=== PATIENT | female | born 1955 | race African-American/Black ===

== ENCOUNTER 2016-07-05 09:30 | Day surgery (SDC) | payer BC ==
[~2016-07-05] VITALS: Ht 167.6 cm; Wt 59.9 kg
[2016-07-05] MEDS ORDERED: ceFAZolin 1GM/50ML D5W 50 ML IV ONE (10:55)
[2016-07-05] MEDS ORDERED: LIDOCAINE W/ EPINEPHRINE 1 % INJ 30ML ONE (12:11)
[2016-07-05] MEDS ORDERED: NEOMYCIN-BACITRACIN-POLYM 15GM TOP OINT TOP ONE (12:12)
[2016-07-05] MEDS ORDERED: CONJ ESTROGENS 0.625MG/GM VAG CRM 30GM PV ONE ×2 (12:20→13:50)
[2016-07-05] MEDS ORDERED: GLYCOPYRROLATE 0.2 MG/ML 1ML VIAL ONE (12:36)
[2016-07-05] MEDS ORDERED: KETOROLAC TROMETH 60MG/2ML VIAL IM ONE (12:36)
[2016-07-05] MEDS ORDERED: ONDANSETRON HCL 4 MG/2 ML VIAL ONE (12:36)
[2016-07-05] MEDS ORDERED: DEXAMETHASONE SOD PHOS 10MG/1ML VIAL INJ ONE (12:36)
[2016-07-05] MEDS ORDERED: NITROGLYCERIN 5MG/ML 10ML VIAL IV ONE (12:36)
[2016-07-05] MEDS ORDERED: fentaNYL CITRATE 100 MCG/2 ML VL ONE ×2 (12:45→13:30)
[2016-07-05] MEDS ORDERED: LIDOCAINE W/ EPINEPHRINE 1% 20ML VIAL ONE (12:56)
[2016-07-05] MEDS ORDERED: LIDOCAINE W/ EPINEPHRINE 1 % INJ 30ML IJ ONE (13:02)
[2016-07-05] MEDS ORDERED: ONDANSETRON HCL 4 MG/2 ML VIAL IV ONE (14:00)
[2016-07-05] MEDS ORDERED: HYDROmorphone HCL 2 MG/ML VL IV PRN (14:00)
[2016-07-05 15:00] VITALS: BP 116/88
== END 2016-07-05 15:00 | disposition home or self-care (01) ==
LOC: SUR 09:30
PROVIDERS: ATTEND Urology
DX: N39.3 Stress incontinence (female) (male) (principal); H40.9 Unspecified glaucoma; K21.9 Gastro-esophageal reflux disease without esophagitis; J44.9 Chronic obstructive pulmonary disease, unspecified
CPT/HCPCS: 57288; 88302; C1771; J0690; J1100; J1885; J2001; J2405; J3010; J3490